=== PATIENT | male | born 1955 | race Caucasian/White ===

== ENCOUNTER 2023-10-18 11:32 | Outpatient (AMB) | payer MEDICARE, SELFPAY ==
--- NOTE | 2023-10-18 12:01 | AM.OFFWIN_ITS ---
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 Started couple weeks ago. Patient Tobacco Use Status: Never used Tobacco Allergies No Known Allergies Allergy (Verified 10/18/23 12:05) Do you need a note to return to daycare/school/sports/work: No HPI HPI Comments History of Present Illness Details Patient is a 68-year-old male here with an elevated blood pressure. He states he was visiting his sister and felt dizzy so they took his blood pressure and it was 141 systolic, he took it again and it was 151 systolic. He states he does not have a primary care doctor and has been ordering valsartan from a [facility] pharmacy on and off for the last few years. He states this is the medication his former primary care doctor had him on but he said there was an HCT at the end of it. He denies any dizziness currently, any visual changes, nausea or sweating. PFSH Social History Patient Tobacco Use Status: Never used Tobacco Review of Systems Const All systems reviewed & are unremarkable except as noted in HPI and below Physical Exam Vital Signs: Last Vital Signs Temp 98.5 F 10/18/23 12:02 Pulse 78 10/18/23 12:02 BP 158/98 H 10/18/23 12:02 Pulse Ox 98 10/18/23 12:02 Oxygen Delivery Method Room Air 10/18/23 12:02 BMI result Body Mass Index 36.7 Const General: cooperative, healthy appearing, comfortable, no acute distress and well developed Nutritional Appearance: obese Orientation/consciousness: patient oriented x3 Limitations: no limitations HEENT Head: Yes normal to inspection Eyes General: appearance normal, both eyes and all related structures Neck Neck: Yes normal visual inspection and Yes full ROM Resp Effort & Inspection: normal respiratory effort and able to speak in complete sentences Skin General skin exam: no rashes or lesions noted Neuro General: patient oriented x3 Extrem General: Yes normal to inspection Assessment & Plan Assessment & Plan (1) Hypertension: Code(s): I10 - Essential (primary) hypertension Qualifiers: Hypertension type: unspecified Qualified Code(s): I10 - Essential (primary) hypertension Plan: Recommended patient go to the emergency department , based on current blood pressure, did educate patient that he is at risk for a stroke. Also recommended he establish care with a primary care doctor and get his blood pressure medications through the a doctor instead of a [facility] pharmacy. Patient states he is going to drive himself to the emergency department, vital signs are stable and he is well-appearing. He states he usually goes to [facility]. Plan see above Coding Level of Care Code New Pt Level 5 (96257) Diagnoses Hypertension, unspecified type I10 Hypertension type: unspecified
[2023-10-18 12:02] VITALS: BP 158/98; PULSE 78; TEMP 36.9; O2SAT 98; BMI 36.7
== END 2023-10-18 12:51 | disposition home or self-care (01) ==
PROVIDERS: Visit Provider Physician Assistant
DX: I10 Essential (primary) hypertension (principal)
CPT/HCPCS: 99205